=== PATIENT | female | born 1980 | race Caucasian/White ===

== ENCOUNTER 2022-08-05 22:14 | Emergency (ER) | payer MEDICAID ==
[2022-08-06 01:00] LABS: Absolute Neutrophil Ct (ANC) 7.57 x10^3/uL (1.4-6.9); BASOPHIL % 0.3 % (0.0-0.4); Basophil (Absolute #) 0.03 x10^3/uL (0-0.4); Eosinophil % 2.7 % (0.00-5.0); Eosinophil (Absolute #) 0.29 x10^3/uL (0-0.5); Hematocrit 40.6 % (35-47); Hemoglobin 13.2 g/dL (12.0-16.0); IMMATURE GRAN # 0.03 x10^3u/L (0.00-0.03); IMMATURE GRAN % 0.3 % (0.00-0.4); Lymphocyte (Absolute #) 2.08 x10^3/uL (1.0-4.6); Lymphocytes % 19.3 % (24.0-44.0); Mean Cell Volume 86.9 fL (78-100); Mean Corpuscular Hemoglobin 28.3 pg (26-32); Mean Corpuscular Hgb Concent. 32.5 g/dL (32-36); Mean Platelet Volume 12.5 fL (7.5-11.0); Monocyte (Absolute #) 0.75 x10^3/uL (0.0-1.3); Neutrophil % 70.4 % (36.0-66.0); Platelet Count 206 x10^3/uL (150-450); Red Blood Count 4.67 x10^6/uL (4.1-5.4); Red Cell Distribution Width 13.5 % (11.5-14.0); White Blood Count 10.8 x10^3/uL (4.0-10.5)
[2022-08-06 01:25] LABS: ALBUMIN 3.8 g/dL (3.5-5.0); ALKALINE PHOSPHATASE 77 U/L (38-126); ANION GAP 10.1 MEQ/L (5-15); BLOOD UREA NITROGEN 12 mg/dL (7-17); CHLORIDE 108 mmol/L (98-107); Calcium 8.5 mg/dL (8.4-10.2); Carbon Dioxide 26 mmol/L (22-30); Creatinine 1 0.73 mg/dL (0.52-1.04); EST GLOMERULAR FILTRATION RATE > 60.0 ML/MIN; Glucose 85 mg/dL (74-106); Potassium 3.8 mmol/L (3.5-5.1); SGOT/AST 24 U/L (14-36); SGPT/ALT 23 U/L (0-35); SODIUM 141 mmol/L (137-145); TROPONIN < 0.012 ng/mL (0.000-0.034)
[2022-08-06] MEDS ORDERED: solu-MEDROL 125 MG, Sterile H2O 10 ml 2 ML IV ONE ×2 (02:14)
[2022-08-06] MEDS ORDERED: DUONEB 0.5-3 MG/3 ml Neb IH ONE ×2 (02:14→02:21)
--- NOTE | 2022-08-06 02:15 | ERPHSYRPT ---
- History of Present Illness Time Seen by Provider: 08/05/22 22:30 Source: patient Exam Limitations: no limitations Patient Subjective Stated Complaint: Pt c/o of having a cold for the past 24 hours and appx 1630 this evening pt reports having increased shortness of breath , feeling like she couldn't get a full breath and chest was heavy. Pt also c/o left ear pain, chills, and headache. Triage Nursing Assessment: Pt ambulated to room per self. Tachypneic. Coarse expiratory wheezes throughout anterior/posterior lungs upon auscultation. Physician History: Patient is a 42-year-old female presents to our emergency department for evaluation of shortness of breath. Patient states she has had URI/cold like symptoms for the past 24 hours. Patient believes that this triggered her shortness of breath. Patient describes a heaviness sensation in her chest. Patient also advises some left ear discomfort. Mild headache. Expiratory wheezing observed on physical exam. Patient states that she had bouts of asthma as a child. However she has been well since. No recent asthma exacerbations. 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 Patient unsure whether or not this may have contributed to her current symptomology. No chest pain. No nausea no vomiting. No diarrhea. No rash. Symptoms are constant. Symptoms are moderate in intensity. Exertion worsens symptoms. Symptoms improved with rest. She voices no other complaints or concerns at this time. Portions of this note were created with voice recognition technology. There may be grammatical, spelling, punctuation or sound alike errors Timing/Duration: yesterday Activities at Onset: none Severity of Dyspnea-Max: mild Severity of Dyspnea-Current: moderate Possible Cause: allergen exposure Modifying Factors: Improves With: nothing Associated Symptoms: cough, chest pain/discomfort (Mild chest heaviness), wheezing, No ankle swelling, No calf pain, No lightheadedness, No muscle spasms feet, No muscle spasms hands, No painful breathing Allergies/Adverse Reactions: Sulfa (Sulfonamide Antibiotics) Allergy (Mild, Verified 08/05/22 22:16) Rash Hx Tetanus, Diphtheria Vaccination/Date Given: Yes Hx Influenza Vaccination/Date Given: No Hx Pneumococcal Vaccination/Date Given: No Immunizations Up to Date: Yes Travel Risk - International Travel Have you traveled outside of the country in past 3 weeks: No - Coronavirus Screening Are you exhibiting any of the following symptoms?: Yes Symptoms: Cough: New Onset, Shortness of Breath, Headaches/Body Aches/Fatigue Close contact with a COVID-19 positive Pt in past 14-21 Days: No - Vaccine Status Have you recieved a Covid-19 vaccination: Yes 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 - Vaccination Dates Date of 2cond Vaccination (if applicable): 2020 - Review of Systems Constitutional: No Symptoms, No Fever, No Chills Eyes: No Symptoms Ears, Nose, & Throat: No Symptoms Respiratory: No Symptoms, No Cough, No Dyspnea Cardiac: No Symptoms, No Chest Pain, No Edema, No Syncope Abdominal/Gastrointestinal: No Symptoms, No Abdominal Pain, No Nausea, No Vomiting, No Diarrhea Genitourinary Symptoms: No Symptoms, No Dysuria Musculoskeletal: No Symptoms, No Back Pain, No Neck Pain Skin: No Symptoms, No Rash Neurological: No Symptoms, No Dizziness, No Focal Weakness, No Sensory Changes Psychological: No Symptoms Endocrine: No Symptoms Hematologic/Lymphatic: No Symptoms Immunological/Allergic: No Symptoms All Other Systems: Reviewed and Negative - Past Medical History Pertinent Past Medical History: Yes Neurological History: Migraines ENT History: No Pertinent History Cardiac History: No Pertinent History Respiratory History: Pneumonia Endocrine Medical History: No Pertinent History Musculoskeletal History: No Pertinent History GI Medical History: Gallbladder Disease History: No Pertinent History Psycho-Social History: Anxiety, Bipolar, Depression, Other Female Reproductive Disorders: Menstrual Problems Other Medical History: manic depression bipolar I, PTSD - Past Surgical History Past Surgical History: Yes Neuro Surgical History: No Pertinent History Cardiac: No Pertinent History Respiratory: No Pertinent History Gastrointestinal: Cholecystectomy Genitourinary: No Pertinent History Musculoskeletal: Other Female Surgical History: Tubal Ligation, Other Other Surgical History: wisdom teeth removed, uterine ablation - Social History Smoking Status: Current every day smoker How long have you smoked: 21 years Exposure to second hand smoke: Yes Drug Use: none Patient Lives Alone: Yes - Female History Hx Last Menstrual Period: 08/02/22 Hx Now: No - Nursing Vital Signs Nursing Vital Signs: Initial Vital Signs Pulse Rate 68 08/05/22 22:15 Respiratory Rate 28 H 08/05/22 22:15 Blood Pressure 125/87 08/05/22 22:15 O2 Sat by Pulse Oximetry 95 08/05/22 22:15 Pain Scale Pain Intensity 5 - Physical Exam General Appearance: no apparent distress, alert Eye Exam: PERRL/EOMI Ears, Nose, Throat Exam: hearing grossly normal, normal ENT inspection, sinus pain/drainage Neck Exam: normal inspection, supple, Brudzinski Respiratory Exam: rhonchi, wheezing, No respiratory distress, No stridor Cardiovascular/Chest Exam: normal heart sounds, regular rate/rhythm Abdominal/Gastrointestinal Exam: soft, normal bowel sounds, No tenderness, No distention, No mass Extremity Exam: non-tender, normal range of motion, normal inspection, no calf tenderness, no pedal edema Peripheral Pulses Exam: dorsalis-pedis (R): 2+, dorsalis-pedis (L): 2+ Neurologic Exam: alert, oriented x 3, cooperative, 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 as tested, sensation nml, No motor deficits Skin Exam: normal color, warm, No dry Lymphatic Exam: No adenopathy SpO2 Interpretation: normal SpO2: 96 O2 Delivery: Room Air - Course Nursing assessment & vital signs reviewed: Yes EKG Interpreted by Me: RATE (73), Sinus Rhythm, NORMAL AXIS, NORMAL INTERVALS - Radiology Exams Chest X-ray Interpretation: Interpreted by me (Negative chest x-ray) Ordered Tests: Active Orders 24 hr Category Date 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 Care 08/05/22 23:51 Active EKG-ER Only STAT Care 08/05/22 23:51 Active IV Insertion STAT Care 08/05/22 23:51 Active Pulse Oximetry (ED) STAT Care 08/05/22 23:51 Active CHEST 1 VIEW (PORTABLE) Stat Exams 08/06/22 02:11 Taken CBC W DIFF Stat Lab 08/05/22 23:55 Completed CMP Stat Lab 08/05/22 23:55 Completed D-DIMER QUANTITATIVE Stat Lab 08/05/22 23:55 Completed TROPONIN Q4H Lab 08/05/22 23:55 Completed TROPONIN Q4H Lab 08/06/22 03:51 Ordered TROPONIN Q4H Lab 08/06/22 07:51 Ordered Respiratory Therapy Assessment DAILY RT 08/06/22 02:29 Active Medication Summary Discontinued Medications Generic Name Dose Route Start Last Admin Trade Name Freq PRN Reason Stop Dose Admin Albuterol Sulfate Confirm 08/06/22 03:42 Albuterol Sulfate 2.5 Mg/3 Ml Neb Administered 08/06/22 03:43 Dose 2.5 mg IH .STK-MED ONE Albuterol Sulfate 2.5 mg 08/06/22 03:45 08/06/22 03:46 Albuterol Sulfate 2.5 Mg/3 Ml Neb IH 08/06/22 03:46 2.5 mg STAT ONE Administration Albuterol/Ipratropium 3 ml 08/06/22 02:14 08/06/22 02:23 Ipratropium/Albuterol Sulfate 3 Ml Ampul.Neb IH 08/06/22 02:15 3 ml STAT ONE Administration Albuterol/Ipratropium Confirm 08/06/22 02:21 Ipratropium/Albuterol Sulfate 3 Ml Ampul.Neb Administered 08/06/22 02:22 Dose 3 ml IH .STK-MED ONE Methylprednisolone Sodium 0 mg 08/06/22 02:14 08/06/22 02:22 Succinate 125 mg/ Sterile IV 08/06/22 02:15 125 mg Water 2 ml STAT ONE Administration Methylprednisolone Sodium Succinate Confirm 08/06/22 02:21 Methylprednis Sod Succ 125 Mg/2 Ml Vial Administered 08/06/22 02:22 Dose 125 mg .ROUTE .STK-MED ONE Sterile Water Confirm 08/06/22 02:21 Water For Injection,Sterile 10 Ml Vial Administered 08/06/22 02:22 Dose 10 ml IJ .STK-MED ONE Lab/Rad Data: Laboratory Result Diagrams 08/05/22 23:55 08/05/22 23:55 Laboratory Results 08/05/22 08/05/22 08/05/22 Range/Units 23:55 23:55 23:55 WBC 10.8 H (4.0-10.5) x10^3/uL RBC 4.67 (4.1-5.4) x10^6/uL Hgb 13.2 (12.0-16.0) g/dL Hct 40.6 (35-47) % MCV 86.9 (78-100) fL MCH 28.3 (26-32) pg MCHC 32.5 (32-36) g/dL RDW 13.5 (11.5-14.0) % Plt Count 206 (150-450) x10^3/uL MPV 12.5 H (7.5-11.0) fL Gran % 70.4 H (36.0-66.0) % Immature Gran % (Auto) 0.3 (0.00-0.4) % Nucleat RBC Rel Count 0.0 (0.00-0.1) % Eos # (Auto) 0.29 (0-0.5) x10^3/uL Immature Gran # (Auto) 0.03 (0.00-0.03) x10^3u/L Absolute Lymphs (auto) 2.08 (1.0-4.6) x10^3/uL Absolute Monos (auto) 0.75 (0.0-1.3) x10^3/uL Absolute Nucleated RBC 0.00 (0.00-0.01) x10^3u/L Lymphocytes % 19.3 L (24.0-44.0) % Monocytes % 7.0 (0.0-12.0) % Eosinophils % 2.7 (0.00-5.0) % Basophils % 0.3 (0.0-0.4) % Absolute Granulocytes 7.57 H (1.4-6.9) x10^3/uL Basophils # 0.03 (0-0.4) x10^3/uL D-Dimer 0.32 (0.0-0.50) mg/L Sodium 141 (137-145) mmol/L Potassium 3.8 (3.5-5.1) mmol/L Chloride 108 H (98-107) mmol/L Carbon Dioxide 26 (22-30) mmol/L Anion Gap 10.1 (5-15) MEQ/L BUN 12 (7-17) mg/dL Creatinine 0.73 (0.52-1.04) mg/dL Estimated GFR > 60.0 ML/MIN Glucose 85 (74-106) mg/dL Calcium 8.5 (8.4-10.2) mg/dL Total Bilirubin 0.30 (0.2-1.3) mg/dL AST 24 (14-36) U/L ALT 23 (0-35) U/L Alkaline Phosphatase 77 (38-126) U/L Troponin I < 0.012 (0.000-0.034) ng/mL Serum Total Protein 7.0 (6.3-8.2) g/dL Albumin 3.8 (3.5-5.0) g/dL - Progress Progress: improved Air Movement: good Progress Note: Patient is a 42-year-old female presents to our ED with shortness of breath. Physical exam reveals wheezing. Patient had chest pressure as well. Physical exam revealed expiratory wheezing and coarse breath sounds. Work-up entails EKG which revealed a normal sinus rhythm. Chest x-ray negative for acute pathology. CBC CMP within normal limits. D-dimer negative. Troponin negative. Patient received Solu-Medrol and a DuoNeb. Symptoms improved. Patient reassessed. Symptoms improved. Patient ambulated throughout our ED. Patient felt well. No hypoxia. Patient request discharge. Patient was discharged home with a Ventolin inhaler. A prescription for prednisone was forwarded to patient's pharmacy. A prescription for Z-Santy was forwarded to patient's pharmacy as well. Patient agrees to follow-up with her primary care doctor within 48 hours for reevaluation. Patient's son at bedside. They voiced no other complaints or concerns at this time. Portions of this note were created with voice recognition technology. There may be grammatical, spelling, punctuation or sound alike errors Complexity of moderate. Patient presented with shortness of breath and chest heaviness. Complexity of data reviewed and analyzed is moderate. Test ordered. Test reviewed and analyzed. Chest x-ray reviewed independently by Dr. Harrell. Patient served as independent historian. Risk of complication and or morbidity and mortality of patient management is high. Patient received nebulizer treatment for shortness of breath wheezing and coarse breath sounds. Albuterol treatment administered. Solu-Medrol administered. Patient feels much better. Patient requesting discharge. Patient will be discharged home. Time spent in discharge is approximately 15 minutes. Portions of this note were created with voice recognition technology. There may be grammatical, spelling, punctuation or sound alike errors 08/06/22 04:20 Blood Culture(s) Obtained: No Antibiotics given: No Counseled pt/family regarding: lab results, diagnosis, need for follow-up, rad results - Departure Departure Disposition: Observation Clinical Impression: Bronchitis, Wheezing Condition: Stable Critical Care Time: No Referrals: DOCTOR,NO FAMILY [Primary Care Provider] - Follow up/PCP as directed RANDY MCMAHAN MD [NON-STAFF PHY W/O PRIVILEGES] - Follow up/PCP as directed RY PETERS [ACTIVE STAFF] - Follow up/PCP as directed Additional Instructions: Discharge/Care Plan JOHN PAUL QUESADA was seen on 08/06/22 in the Emergency Room. The patient was counseled regarding Diagnosis,Lab results, Imaging studies, need for follow up and when to return to the Emergency Room. Prescriptions given: Discharge Note I have spoken with the patient and/or caregivers. I have explained the patient's condition, diagnosis and treatment plan based on the information available to me at this time. I have answered the patient's and/or caregiver's questions and addressed any concerns. The patient and/or caregivers have as good understanding of the patient's diagnosis, condition and treatment plan as can be expected at this point. The vital signs have been stable. The patient's condition is stable and appropriate for discharge from the emergency department. The patient will pursue further outpatient evaluation with the primary care physician or other designated or consulting physician as outlined in the discharge instructions. The patient and/or caregivers are agreeable to this plan of care and follow-up instructions have been explained in detail. The patient and/or caregivers have received these instruction. The patient/and or caregivers are aware that any significant change in condition or worsening of symptoms should prompt an immediate return to this or the closest emergency department or call 911. Prescriptions: Prednisone 10 mg [Deltasone 10 mg] 40 mg PO DAILY 3 Days #12 tablet Azithromycin 250 mg [Zithromax 250 MG TABLET] 250 mg PO ZPACK #6 tablet
[2022-08-06] MEDS ORDERED: solu-MEDROL ONE (02:21)
[2022-08-06] MEDS ORDERED: Sterile H2O 10 ml IJ ONE (02:21)
[2022-08-06] MEDS ORDERED: PROVENTIL 2.5 MG/3 ML NEB IH ONE ×2 (03:42→03:45)
[2022-08-06] MEDS ORDERED: Ventolin Hfa MDI IH ONE ×2 (04:10→04:19)
[2022-08-06 04:13] VITALS: BP 128/78; PULSE 69
[2022-08-06 04:14] VITALS: O2SAT 96
--- NOTE | 2022-08-06 09:00 | XRAY ---
Indication: Cough. Short of breath. Comparison: June 10, 2009 Portable chest demonstrates normal heart and lungs with a few incidental tiny left lung calcified granulomas. Bony thorax intact. No new/acute findings.
== END 2022-08-06 04:35 | disposition home or self-care (01) ==
LOC: ED 22:14
DX: J40 Bronchitis, not specified as acute or chronic (principal); R06.2 Wheezing; R06.02 Shortness of breath; Z79.52 Long term (current) use of systemic steroids; Z72.0 Tobacco use
CPT/HCPCS: 36000; 36415; 71045; 80053; 84484; 85025; 85379; 93005; 93041; 94640; 94760; 96374; 99284; J2930; J7609; A9270-GY